=== PATIENT | male | born 1985 | race Caucasian/White ===

== ENCOUNTER 2018-04-24 14:54 | Emergency (ER) | payer BC ==
[2018-04-24 15:00] VITALS: BP 111/74
[2018-04-24] MEDS ORDERED: BUPIVACAINE 0.5% PF 10 ML VIAL SUBQ STA (15:04)
--- NOTE | 2018-04-24 15:05 | ED Physician Documentation ---
PD HPI LOWER EXT INJURY - Stated complaint Stated Complaint: L TOE INJURY - Chief complaint Chief Complaint: Ext Problem - History obtained from History obtained from: Patient - History of Present Illness PD HPI LOW EXT INJURY LOCATION: Left (He was running barefoot and ran into a concrete wall injuring his left small toe just prior to arrival.) Review of Systems Constitutional: reports: Reviewed and negative Cardiac: reports: Reviewed and negative Respiratory: reports: Reviewed and negative PD PAST MEDICAL HISTORY - Present Medications Home Medications: Ambulatory Orders Medication Instructions Recorded Confirmed No Known Home Medications [No 04/24/18 04/24/18 Known Home Medications] - Allergies Allergies/Adverse Reactions: Allergies Allergy/AdvReac Type Severity Reaction Status Date / Time morphine Allergy Unknown Verified 04/24/18 15:01 PD ED PE NORMAL - Vitals Vital signs reviewed: Yes - General General: Alert and oriented X 3, No acute distress - Extremities Extremities: Other (At the proximal phalanx of the left small toe there is a significant lateral Angulation.) - Neuro Neuro: Alert and oriented X 3, Normal speech Results - Vitals Vitals: Vital Signs - 24 hr 04/24/18 14:58 Temperature 36.9 C Heart Rate 67 Respiratory 18 Rate Blood Pressure 111/74 O2 Saturation 99 Oxygen O2 Source Room air - Rads (name of study) L small toe Radiology: EMP read contemporaneously (Angulated and displaced proximal phalanx fracture, note this was done prior to reduction.) Procedures - Reduction Body part reduced: Left, Toe Fracture or dislocation: Fracture dislocation Anesthesia: Hematoma block, Marcaine (enter cc) (2) Reduction aftercare: NV intact, Alignment improved, Splint applied (manav taped , he did not want frx shoe), Patient tolerated well PD MEDICAL DECISION MAKING - Sepsis Event Vital Signs: Vital Signs - 24 hr 04/24/18 14:58 Temperature 36.9 C Heart Rate 67 Respiratory 18 Rate Blood Pressure 111/74 O2 Saturation 99 Oxygen O2 Source Room air Departure - Departure Disposition: 01 Home, Self Care Clinical Impression: Fracture dislocation of toe of left foot Qualifiers: Encounter type: initial encounter Fracture type: closed Qualified Code(s): S92.912A - Unspecified fracture of left toe(s), initial encounter for closed fracture Condition: Good Record reviewed to determine appropriate education?: Yes Instructions: ED Fx Toe Closed Comments: Follow-up with an orthopedic surgeon with a copy of the x-rays on CD and about a week near home.
--- NOTE | 2018-04-24 15:34 | XRAY Report ---
Procedure Date: 04/24/2018 Accession Number: [id number] / [id number] Procedure: XR - Toe(s) LT CPT Code: FULL RESULT: EXAM: LEFT TOE RADIOGRAPHY EXAM DATE: 04/24/2018 03:22 PM. CLINICAL HISTORY: Left fifth digit pain. COMPARISON: None. TECHNIQUE: 3 views. FINDINGS: Bones: Oblique distal aspect left fifth proximal phalanx fracture with lateral displacement of the distal fracture fragment 3-4 mm and lateral angulation of the fracture approximately 35-40 degrees . No intra-articular extent. Slight dorsal displacement. Joints: Normal. No subluxations. Soft Tissues: Soft tissue swelling. IMPRESSION: 1. Oblique displaced angulated left fifth proximal phalanx fracture. [facility]
== END 2018-04-24 15:47 | disposition home or self-care (01) ==
LOC: ED 14:54
DX: S92.512A Displaced fracture of proximal phalanx of left lesser toe(s), initial encounter for closed fracture (principal); W22.01XA Walked into wall, initial encounter; Y93.02 Activity, running
CPT/HCPCS: 28515; 73660; 99281; 99283